=== PATIENT | female | born 1945 ===

== ENCOUNTER 2018-06-27 08:58 | Day surgery (SDC) | payer MEDICARE, OTHER ==
[~2018-06-27 08:58] MED LIST: Acetaminophen-Codeine 300/30 mg Tab PO PRN; Dextrose 5%/0.45% NS 1,000 ML IV SCH
[2018-06-27] MEDS ORDERED: Propofol 10 mg/ml Inj (20 ML) ONE (10:58)
[2018-06-27] MEDS ORDERED: Succinylcholine Chloride 20 mg/ml Syr (5 ml) IV ONE (10:59)
[2018-06-27] MEDS ORDERED: Lidocaine Hydrochloride 5 ML INJ ONE (11:00)
[2018-06-27] MEDS ORDERED: ceFAZolin 1 gm in NS 1 GM/100 ML BAG IVPB ONE (11:03)
[2018-06-27] MEDS ORDERED: Lidocaine/Epinephrine 1% 1:100000 10 ML IJ ONE (11:04)
[2018-06-27] MEDS ORDERED: Lactated Ringer's 1,000 ML IV SCH (11:45)
[2018-06-27 13:18] VITALS: RESP 16
[2018-06-27 13:48] VITALS: BP 122/50; PULSE 74; TEMP 97.8; O2SAT 95
--- NOTE | 2018-06-27 23:11 | OP ---
PROCEDURE DATE: 06/27/2018 PREOPERATIVE DIAGNOSIS: Left epiglottic mass, left superior epiglottic mass possible. POSTOPERATIVE DIAGNOSIS: Left epiglottic mass, left superior epiglottic mass possible. PROCEDURE: Direct laryngoscopy and biopsy. DESCRIPTION OF PROCEDURE: The patient was brought into room, placed in a supine position. Anesthesia was initiated through an ET tube. Shoulder roll was placed and neck extended. The patient was draped in the usual manner. A bite guard was placed over the upper jaw in order to protect them. Direct laryngoscope was inserted into the oral cavity and passed to the oropharynx and hypopharynx. The base of tongue, vallecula, epiglottis, AE folds, false cords, true cords, piriform sinuses, arytenoids, and pharyngeal wall were brought into view. No masses or lesions were noted. Biopsies of left epiglottis and left vallecula were taken. Bleeding was controlled using cold water irrigation. Direct laryngoscope was removed. The patient was taken off anesthesia and taken to recovery room in stable manner. Nicholas Guo MD
== END 2018-06-27 13:48 | disposition home or self-care (01) ==
LOC: C.SDS 08:58
PROVIDERS: ATTEND Otolaryngology
DX: R22.1 Localized swelling, mass and lump, neck (principal)
CPT/HCPCS: 31535; 82948; 88305; J1100; J2405; J2704; J3010